=== PATIENT | male | born 1945 | race Caucasian/White ===

== ENCOUNTER → 2023-05-11 09:23 | Outpatient (REF) | payer MEDICARE, OTHER, SELFPAY ==
[2023-05-11 10:13] LABS: Hematocrit 44.1 % (39.0-52.0); Hemoglobin 15.4 g/dL (13.0-18.0); Mean Corp Hgb Conc. 34.9 g/dL (33.0-37.0); Mean Corpuscular Hgb 31.8 pg (27.0-31.0); Mean Corpuscular Volume 91.1 fL (80.0-94.0); Mean Platelet Volume 8.7 fL (7.4-10.4); Platelet Count 252 10^3/uL (130-400); Red Blood Cell Count 4.84 10^6/uL (4.70-6.10); Red Cell Dist. Width 13.6 % (11.5-14.5); White Blood Cell Count 6.3 10^3/uL (4.8-10.8)
[2023-05-11 10:31] LABS: ALT (SGPT) 48 U/L (0-50); AST (SGOT) 37 U/L (17-59); Albumin 4.6 g/dl (3.5-5.0); Alkaline Phosphatase 70 U/L (38-126); Blood Urea Nitrogen 17 mg/dl (9-20); Calcium 9.7 mg/dl (8.4-10.2); Carbon Dioxide 31 mmol/L (22-30); Chloride 101 mmol/L (98-107); Glucose 97 mg/dl (70-99); Potassium 4.9 mmol/L (3.5-5.1); Sodium 137 mmol/L (135-145); Total Bilirubin 0.9 mg/dl (0.2-1.3); Total Protein 7.2 g/dl (6.3-8.2); eGFR > 60.00
== END ==
LOC: SDSPAT 09:23
PROVIDERS: ATTENDING PHYSICIAN Otolaryngology; FAMILY PHYSICIAN Family Medicine
DX: Z01.818 Encounter for other preprocedural examination (principal)
CPT/HCPCS: 36415; 80053; 85027

== ENCOUNTER 2023-05-12 06:19 | Day surgery (SDC) | payer MEDICARE, OTHER, SELFPAY ==
[2023-05-11 12:40] VITALS: BMI 35.7
[2023-05-12] VITALS (10 sets, daily range): BP systolic 74–139; BP diastolic 35–86
== END 2023-05-12 09:42 | disposition home or self-care (01) ==
LOC: SDS 06:19
PROVIDERS: ATTENDING PHYSICIAN Otolaryngology
DX: R13.10 Dysphagia, unspecified (principal); K22.0 Achalasia of cardia; K44.9 Diaphragmatic hernia without obstruction or gangrene; R05.9 Cough, unspecified
CPT/HCPCS: 43450

== ENCOUNTER → 2024-01-31 10:38 | Outpatient (REF) | payer MEDICARE, OTHER, SELFPAY | LOC: PAVMRI 10:38 | PROVIDERS: ATTENDING PHYSICIAN Anesthesiology; FAMILY PHYSICIAN Family Medicine | DX: M19.011 Primary osteoarthritis, right shoulder (principal); M54.16 Radiculopathy, lumbar region | CPT/HCPCS: 72148; 73221 ==

== ENCOUNTER → 2024-03-01 08:51 | Outpatient (REF) | payer MEDICARE, OTHER, SELFPAY ==
--- NOTE | 2024-03-01 10:14 | CARDSERVLU ---
Echocardiogram with Lumason completed after protocol screening completed. Allergies verified.
Patent IV site: _Right median antecubital 20 G PC____
IV site flushed with 0.9% NaCl pre and post administration.
Diluted bolus method utilized to enhance visualization of ventricular carrion.
Total volume given: _3___ mL
Patient tolerated all procedures well without complications.
Heplock D/C ed at 1006, site clear, no redness, no edema. Pressure held, no bleeding,2x2 applied and taped. Pt offers no complaints.
== END ==
LOC: RCS 08:51
PROVIDERS: ATTENDING PHYSICIAN Internal Medicine Cardiovascular Disease; FAMILY PHYSICIAN Family Medicine
DX: I10 Essential (primary) hypertension (principal); Z01.810 Encounter for preprocedural cardiovascular examination
CPT/HCPCS: 93306; Q9950

== ENCOUNTER → 2024-09-07 11:26 | Outpatient (REF) | payer MEDICARE, OTHER, SELFPAY | LOC: HWRAD 11:26 | PROVIDERS: ATTENDING PHYSICIAN Allergy & Immunology; FAMILY PHYSICIAN Family Medicine | DX: R05.3 Chronic cough (principal) | CPT/HCPCS: 70486 ==